=== PATIENT | male | born 1970 ===

== ENCOUNTER 2025-01-29 21:12 | Emergency (ER) | payer SELFPAY ==
[2025-01-29 21:17] VITALS: BP 117/73; PULSE 56; RESP 18; TEMP 36.9; O2SAT 100; BMI 21.8
--- NOTE | 2025-01-29 21:29 | PC.NURSE ---
During triage, patient and family was asking about wait times. Educated patient that we are unable to give wait times d/t the changing environment of the ED. Did let them know that my longest waiting patient was over 3 hours and support person said I'm calling Reagan and walked out of triage. When patient left triage they were seen walking out of the ED and did notify registration that they were leaving.
== END 2025-01-29 21:25 | disposition left against medical advice (07) ==
PROVIDERS: Emergency Provider Emergency Medicine
DX: S59.911A Unspecified injury of right forearm, initial encounter (principal)
CPT/HCPCS: 99281